=== PATIENT | female | born 1965 | race Caucasian/White ===

== ENCOUNTER 2021-11-05 08:36 | Inpatient (IN) | payer OTHER ==
[~2021-11-05] VITALS: Ht 172.7 cm; Wt 106.6 kg
--- NOTE | ~2021-11-05 | PROC ---
[address] [address] PROCEDURE REPORT Name: HI PAUL Room: [address] IN M.R.#: [id number] Admission: 11/05/21 Attend Phys: Jessica Varner MD Discharge: Date of : 61 Report #: [id number] THIS REPORT FOR: cc: FAM - No family physician/PCP FAM - No family physician/PCP [facility],Medical Records Staff ~ For GI report, please see the Provation report in Per[employer] 7 content. By: [id number] Records Staff VIVEK /ROSMERY
[2021-11-05 09:25] VITALS: BP 154/93
[2021-11-05 10:30] LABS: URINE BLOOD NEGATIVE (Negative); URINE CLARITY CLEAR; URINE COLOR ORANGE; URINE GLUCOSE-RANDOM NEGATIVE (Negative); URINE KETONES NEGATIVE (Negative); URINE LEUKOCYTES-REFLEX NEGATIVE (Negative); URINE NITRITE-REFLEX NEGATIVE (Negative); URINE PROTEIN 1+ (Negative)
[2021-11-05 10:32] LABS: ICTOTEST (BILI CONFIRMATORY) Positive (Negative); URINE BILIRUBIN 2+ (Negative)
[2021-11-05 11:15] LABS: ABSOLUTE BASOPHILS 0.1 thou/uL (0.0-0.2); ABSOLUTE EOSINOPHILS 0.1 thou/uL (0.0-0.7); ABSOLUTE LYMPHOCYTES 0.7 thou/uL (0.8-5.3); ABSOLUTE MONOCYTES 1.2 thou/uL (0.0-1.2); ABSOLUTE NEUTROPHILS 15.2 thou/uL (1.6-8.1); BASOPHILS 0.4 %; EOSINOPHILS 0.7 %; HEMOGLOBIN 14.5 gm/dL (12.0-15.0); LYMPHOCYTES 4.1 %; MCH 29.7 pg (26.0-34.0); MCHC 33.7 g/dL (28.0-37.0); MCV 88.1 fL (80.0-100.0); MONOCYTES 6.7 %; MPV 8.2 fl. (7.2-11.1); NUCLEATED RBCS 0 /100WBC; PLATELET COUNT* 296 thou/uL (150-400); POLYS 88.1 %; RBC 4.88 mil/uL (4.20-5.00); RDW-CV 13.3 % (10.5-14.5); WBC 17.3 thou/uL (4.0-11.0)
[2021-11-05 11:27] LABS: CALCIUM 8.9 mg/dL (8.5-10.1); POTASSIUM 3.6 mmol/L (3.5-5.1)
[2021-11-05 11:32] LABS: ALBUMIN 3.6 g/dL (3.4-5.0); TOTAL BILIRUBIN 3.3 mg/dL (<0.1-1.0); TOTAL PROTEIN 7.1 g/dL (6.4-8.2)
[2021-11-05 13:05] LABS: PROTIME 10.2 Seconds (9.20-11.50)
[2021-11-05 16:45] VITALS: BP 124/73
[2021-11-05 20:45] VITALS: BP 121/69
[2021-11-06 01:00] VITALS: BP 118/72
[2021-11-06 05:40] LABS: HEMOGLOBIN 13.6 gm/dL (12.0-15.0); MCH 30.3 pg (26.0-34.0); MCHC 33.3 g/dL (28.0-37.0); MCV 91.2 fL (80.0-100.0); MPV 8.9 fl. (7.2-11.1); RBC 4.5 mil/uL (4.20-5.00); RDW-CV 13.8 % (10.5-14.5); WBC 9.1 thou/uL (4.0-11.0)
[2021-11-06 05:53] VITALS: BP 118/72
[2021-11-06 06:12] LABS: ALBUMIN 2.9 g/dL (3.4-5.0); ALKALINE PHOSPHATASE 220 U/L (46-116); ANION GAP 8 mmol/L (7-16); BUN 10 mg/dL (7-18); CALCIUM 8.5 mg/dL (8.5-10.1); CHLORIDE 108 mmol/L (98-107); CHOLESTEROL 117 mg/dL (<200); CO2 27 mmol/L (21-32); GLUCOSE 103 mg/dL (70-99); HDL CHOLESTEROL 39 mg/dL (>40); LDL CHOLESTEROL 67 mg/dL (<100); MAGNESIUM 2.1 mg/dL (1.8-2.4); POTASSIUM 3.6 mmol/L (3.5-5.1); SGOT 321 U/L (15-37); SGPT 564 U/L (30-65); SODIUM 143 mmol/L (136-145); TOTAL BILIRUBIN 5.9 mg/dL (<0.1-1.0); TOTAL PROTEIN 6.2 g/dL (6.4-8.2); TRIGLYCERIDE 58 mg/dL (<150); VLDL 12 mg/dL (<40)
[2021-11-06 06:18] LABS: SERUM ASSESSMENT CLEAR
[2021-11-06 09:00] VITALS: BP 120/75
[2021-11-06 13:08] VITALS: BP 121/73
[2021-11-06 19:58] VITALS: BP 153/75
[2021-11-06 21:06] LABS: IgG 704 mg/dL (586-1602); IgM 87 mg/dL (26-217)
[2021-11-07] VITALS: BP 131/76
[2021-11-07 05:00] VITALS: BP 107/53
[2021-11-07 05:16] LABS: HEMATOCRIT 40.4 % (37.0-47.0); HEMOGLOBIN 13.6 gm/dL (12.0-15.0); MCH 30.3 pg (26.0-34.0); MCHC 33.6 g/dL (28.0-37.0); MCV 89.9 fL (80.0-100.0); MPV 9.2 fl. (7.2-11.1); RBC 4.5 mil/uL (4.20-5.00); RDW-CV 13.4 % (10.5-14.5); WBC 10.1 thou/uL (4.0-11.0)
[2021-11-07 06:00] LABS: ALBUMIN 3.2 g/dL (3.4-5.0); CREATININE 0.9 mg/dL (0.6-1.3); MAGNESIUM 2.2 mg/dL (1.8-2.4); POTASSIUM 3.8 mmol/L (3.5-5.1); TOTAL BILIRUBIN 5.3 mg/dL (<0.1-1.0); TOTAL PROTEIN 6.9 g/dL (6.4-8.2)
[2021-11-07 08:00] VITALS: BP 148/74
[2021-11-07 10:07] LABS: ANTI-DNA SCREEN 2 IU/mL (0-9); ANTI-RNP <0.2 AI (0.0-0.9); ANTI-SSA <0.2 AI (0.0-0.9); ANTIJO-I AB <0.2 AI (0.0-0.9)
[2021-11-07 10:07] LABS: HEPATITIS B SURFACE AG Negative (Negative)
[2021-11-07 11:37] VITALS: BP 137/75
[2021-11-07] MEDS ORDERED: LEVOFLOXACIN500 MG PO (13:59)
[2021-11-07 14:51] VITALS: BP 137/75
--- NOTE | 2021-11-07 17:02 | CON ---
[address] [address] CONSULTATION Name: HI PAUL Room: [address] IN M.R.#: [id number] Admission: 11/05/21 Attend Phys: Jessica Varner MD Discharge: 11/07/21 Date of : 61 Report #: [id number] THIS REPORT FOR: cc: FAM - No family physician/PCP FAM - No family physician/PCP Ry Childress DO ~ cc: Jessica Varner MD DATE OF CONSULTATION: 11/06/2021 REFERRING PHYSICIAN: Jessiac Varner MD The patient has no primary care provider. REASON FOR CONSULTATION: 1. Epigastric and right upper quadrant pain with elevated LFTs -- evaluate for possible choledocholithiasis versus sphincter of Oddi dysfunction, type 1 versus autoimmune hepatitis with possible overlap syndrome with PBC (primary biliary cholangitis) versus much less likely PSC (primary sclerosing cholangitis). 2. Status post remote cholecystectomy greater than 15 years ago -- the patient cannot remember if she had gallstones or not or if it was removed just because it was not functioning. 3. Family history of autoimmune disease in her father who had rheumatoid arthritis. 4. Age over 50 -- I will need to question the patient whether or not she has ever had a screening colonoscopy in the past. If not, arrangement for this to be done as an outpatient. RECOMMENDATIONS: 1. We will proceed with an MRCP today to act as a guide to determine whether or not she has any common bile duct stones or sludge or debris within the bile duct versus less likely biliary stricture much less likely findings suggest PSC. 2. We will proceed with EGD/ERCP to be done this afternoon with probable biliary sphincterotomy, balloon sweep, stone extraction, etc. 3. Depending on the results of same, she may need to undergo an ultrasound-guided liver biopsy to ensure that she does not have autoimmune hepatitis or some type of overlap syndrome. 4. We will await the results of the autoimmune markers that I have ordered already including an JOSS, smooth muscle antibody, mitochondrial antibody, total IgG and IgM levels. 5. Further recommendation will be made after the EGD/ERCP that will be done later this afternoon. I have discussed these plans with Shirley as well as her and everyone is in agreement with the same. HISTORY OF PRESENT ILLNESS: The patient is a pleasant 55-[place] [address] CONSULTATION Name: HI PAUL Room: [address] IN [facility]#: [id number] Admission: 11/05/21 Attend Phys: Jessica Varner MD Discharge: 11/07/21 Date of : 61 Report #: [id number] female who has been feeling poorly at this time for the last several months and had intermittent episodes of rather severe "spasm" in epigastric area, which were radiating around to her back. The pain feels very much like what she had before she had her gallbladder taken out over 15 years ago. She does not recall whether she had gallstones or whether it was not working. She does not recall where it was done. She denies any complaints of dysphagia, odynophagia, postprandial pain or any problems noted with her bowels or bowel frequency. She has never had any problems with her liver in the past and never had a history of any hepatitis or jaundice. She has never had any previous blood transfusions. She has a family history of rheumatoid arthritis in her father, but no family history of lupus or any other issues. She does not smoke or drink, nor has she had a history of any drug use recreational, otherwise. She has otherwise been healthy. She has not been seen by primary care provider for a number of years. She has no other issues. ALLERGIES: None. MEDICATIONS: Include intermittent Aleve, Excedrin Migraine and zinc when she needs it when she is around someone who has had a cold. PAST MEDICAL HISTORY: Significant for previous tubal ligation and cholecystectomy in the past. SOCIAL HISTORY: The patient is , does not smoke or drink. FAMILY HISTORY: As above. PHYSICAL EXAMINATION: GENERAL: Pleasant 55-year-old white female who is awake and alert. CARDIOPULMONARY: Revealed a regular rhythm. LUNGS: Clear. ABDOMEN: Soft and not tender. No rebound or guarding noted. LABORATORY TESTS: From admission revealed a white count of 17.3, hemoglobin 14.5, platelet count 296,000. MCV is 88.1 and RDW 13.3. Her chemistry tests from yesterday revealed a sodium 141, potassium 3.6, chloride 107, bicarbonate is 26, BUN 14, creatinine 1.0 for GFR of 57. Total bilirubin was 3.3, alkaline phosphatase 197, AST 875 and ALT 781. Albumin is 3.6. Today's laboratory tests from 11/06 revealed a white count of 9.1, hemoglobin 13.6 and a platelet count of 263,000. Her differential is normal. Her complete metabolic panel reveals sodium 143, potassium 3.6, chloride 108, bicarbonate is 27, her BUN was 10, creatinine 1.0, her GFR of 57. Her bilirubin has risen to 5.9, alkaline phosphatase is also elevated at 220. Her AST is 564 and ALT 321. [address] [place] [address] CONSULTATION Name: HI PAUL Room: [address] IN ..#: [id number] Admission: 11/05/21 Attend Phys: Jessica Varner MD Discharge: 11/07/21 Date of : 61 Report #: [id number] Her albumin is 2.9 with a globulin of 3.3. Her fasting lipid profile was normal with the exception of a low LDL of 39. CT scan of the abdomen and pelvis performed yesterday revealed postsurgical change without cholecystectomy. Diffuse hepatic steatosis was noted. No worrisome ductal dilation is noted. The pancreas appears to be normal. Spleen is also normal. No abnormalities noted within the remainder of the CT scan. DISCUSSION: At the present time, the patient has epigastric pain, right upper quadrant pain and history of gallbladder disease in the past. We will proceed with MRCP today and EGD/ERCP this afternoon. I have discussed plans with the patient as well and she is agreeable to same. <ELECTRONICALLY SIGNED> By: Ry Childress DO 11/07/21 1702 1103 [id number] Childress DO /nt
== END 2021-11-07 15:40 | disposition home or self-care (01) | DRG 444 ==
LOC: M.ERS 08:36 → M.TBA-ER 12:48 → M.TBA 11-06 19:46 → M.2W 11-06 19:52
PROVIDERS: Emergency Medicine Emergency Medical Services; Internal Medicine Gastroenterology; Physician Assistant; ADMIT Internal Medicine; ATTEND Internal Medicine
PROC: 0F798ZZ Dilation of Common Bile Duct, Via Natural or Artificial Opening Endoscopic (ICD-10-PCS; principal; 2021-11-06)
PROC: 0DJ08ZZ Inspection of Upper Intestinal Tract, Via Natural or Artificial Opening Endoscopic (ICD-10-PCS; principal; 2021-11-06)
PROC: 0FC98ZZ Extirpation of Matter from Common Bile Duct, Via Natural or Artificial Opening Endoscopic (ICD-10-PCS; principal; 2021-11-06)
DX: K80.50 Calculus of bile duct without cholangitis or cholecystitis without obstruction (principal); J15.6 Pneumonia due to other Gram-negative bacteria; R74.01 Elevation of levels of liver transaminase levels; D72.829 Elevated white blood cell count, unspecified; N28.9 Disorder of kidney and ureter, unspecified; Z90.49 Acquired absence of other specified parts of digestive tract; Z82.61 Family history of arthritis